=== PATIENT | male | born 1990 | race Caucasian/White ===

== ENCOUNTER 2018-11-04 10:08 | Emergency (ER) | payer SELFPAY ==
[~2018-11-04] VITALS: Ht 160 cm; Wt 84.4 kg
[2018-11-04 10:28] VITALS: BP 111/78
--- NOTE | 2018-11-04 10:32 | NUR ---
PT AMBULATED TO LOBBY AT THIS TIME, VSS.
--- NOTE | 2018-11-04 11:05 | NUR ---
PT TO ER BED 12
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
[2018-11-04] MEDS ORDERED: IBUPROFEN 400 MG TAB PO ONE (11:50)
[2018-11-04 12:55] VITALS: BP 111/78
== END 2018-11-04 12:53 | disposition home or self-care (01) ==
LOC: MED 10:08
DX: S16.1XXA Strain of muscle, fascia and tendon at neck level, initial encounter (principal); V43.52XA Car driver injured in collision with other type car in traffic accident, initial encounter; Y93.89 Activity, other specified; Y92.410 Unspecified street and highway as the place of occurrence of the external cause; Y99.8 Other external cause status
CPT/HCPCS: 72040; 99283